=== PATIENT | male | born 1960 | race Caucasian/White ===

== ENCOUNTER 2020-01-06 07:47 | Day surgery (SDC) | payer OTHER, SELFPAY ==
[2020-01-05 14:03] VITALS: BMI 35.4
--- NOTE | 2020-01-06 08:07 | P.ANESASSM_ITS ---
Pre-Anesthetic Assessment Pre-Anesthetic Assessment: Height/Weight: Height 1.75 m Weight 108.862 kg Preop Diagnosis: screening Proposed Procedure: Operation Date: 01/06/20 09:30 Proposed Procedures p Colonoscopy(Not Applicable) - Bruce Benitez MD Familial anesthetic complications: None Was Beta Khalif taken within 24 hour s: N/A Last intake: NPO > 8 hrs Social: Social History: Tobacco and No alcohol Comment: chews tobacco Exam: Pre-Anes Outpt Exam: alert, oriented x 3, clear to auscultation bilaterally and regular rate & rhythm Airway: Cervical ROM: WNL MP: 2 Dentition: Chipped Additional comments: missing teeth, full diaz Pulmonary: Pulmonary: None reported CV/HEM: CV/HEM: HTN : : None reported Hepatic: Hepatic: None reported GI: GI: GERD Metabolic: Metabolic: Hyperlipidemia and Morbid obesity Musc/skel: Musc/skel: None reported Neuropsych: Neuropsych: None reported Anesthetic Plan: ASA status: 2 Anesthesia: MAC Risk of > 500 ml blood loss (7ml/kg in children): No Data Anesthesia Cardiac Studies: No Data to Display
[2020-01-06 08:29] VITALS: BP 126/84; PULSE 115; RESP 20; TEMP 36.2; O2SAT 98
[2020-01-06] MEDS: sodium chloride 0.9% 1,000 ML 30 ML (08:44)
--- NOTE | 2020-01-06 10:14 | W.PM.OPSUD ---
Surgery/Procedure H&P Update DATE OF PROCEDURE: January 06, 2020 DATE H&P PERFORMED: 12/22/19 H&P UPDATE INFORMATION: I have reviewed H&P completed within last 30 days, I have examined patient prior to procedure, No changes to prior documentation and H&P to be scanned into chart PREOP DIAGNOSIS: screening PLANNED PROCEDURE: Operation Date: 01/06/20 09:30 Proposed Procedures p Colonoscopy(Not Applicable) - Bruce Benitez MD Related Problem List Diagnoses (1) Colon cancer screening:
[2020-01-06 10:48] VITALS: BP 119/66; PULSE 97; RESP 16; TEMP 36.2; O2SAT 99
[2020-01-06 11:03] VITALS: BP 106/80; PULSE 93; RESP 18; O2SAT 100
== END 2020-01-06 11:08 | disposition home or self-care (01) ==
PROVIDERS: Family Provider Internal Medicine; PCP Physician Assistant; Visit Provider Family Medicine
PROC: 0DJD8ZZ Inspection of Lower Intestinal Tract, Via Natural or Artificial Opening Endoscopic (ICD-10-PCS; CPT 45378; principal; 2020-01-06 09:30)
DX: Z12.11 Encounter for screening for malignant neoplasm of colon (principal); K57.30 Diverticulosis of large intestine without perforation or abscess without bleeding; K64.8 Other hemorrhoids; D12.4 Benign neoplasm of descending colon; D12.5 Benign neoplasm of sigmoid colon; D12.3 Benign neoplasm of transverse colon; D12.8 Benign neoplasm of rectum; F17.210 Nicotine dependence, cigarettes, uncomplicated; I10 Essential (primary) hypertension; F17.220 Nicotine dependence, chewing tobacco, uncomplicated; Z79.82 Long term (current) use of aspirin; E78.5 Hyperlipidemia, unspecified
CPT/HCPCS: 12345; 45384; 45385; 88305; J2704; J7030